=== PATIENT | female | born 1990 | race Two or more races ===

== ENCOUNTER 2018-08-20 17:13 | Emergency (ER) | payer SELFPAY ==
[~2018-08-20] VITALS: Ht 157.5 cm; Wt 55.6 kg
[2018-08-20 18:17] LABS: BASOPHILS # (AUTO) 0.04 x10^3/uL (0-0.1); BASOPHILS % (AUTO) 0 % (0-1); EOSINOPHILS # (AUTO) 0.05 x10^3/uL (0-0.4); EOSINOPHILS % (AUTO) 1 % (1-7); LYMPHOCYTES # (AUTO) 2.91 x10^3/uL (1-3.4); LYMPHOCYTES % (AUTO) 29 % (22-44); MD NO; MEAN CORPUSCULAR HGB CONC 34.8 g/dL (32.4-35.8); MEAN CORPUSCULAR VOLUME 91.8 fL (80-100); MEAN PLATELET VOLUME 8.3 fL (7.4-10.4); MONOCYTES # (AUTO) 0.79 x10^3/uL (0.2-0.8); MONOCYTES % (AUTO) 8 % (2-9); NEUTROPHILS # (AUTO) 6.15 x10^3/uL (1.8-6.8); NEUTROPHILS % (AUTO) 62 % (42-75); PLATELET COUNT 219 x10^3/uL (130-400); RED BLOOD COUNT 3.58 x10^6/uL (3.82-5.3); RED CELL DISTRIBUTION WIDTH 12.8 % (9.6-15.2)
[2018-08-20 18:32] LABS: ANION GAP 8 mmol/L (5-15); CALCIUM 9.3 mg/dL (8.5-10.1); CHLORIDE 106 mmol/L (98-107); CREATININE 0.61 mg/dL (0.55-1.02)
[2018-08-20 19:12] LABS: MICROSCOPIC NOT IND
[2018-08-20 19:14] LABS: CULTURE INDICATED? NO
[2018-08-20 19:50] VITALS: BP 120/72
== END 2018-08-20 21:48 | disposition home or self-care (01) ==
LOC: ED 19:59
DX: O20.0 Threatened abortion (principal)
CPT/HCPCS: 36415; 76801; 80048; 81003; 82040; 84702; 85025; 86901; 99285

== ENCOUNTER 2018-08-22 18:18 | Observation (INO) | payer SELFPAY ==
[~2018-08-22] VITALS: Ht 157.5 cm; Wt 55.6 kg
[2018-08-22 18:24] VITALS: BP 107/52
[2018-08-22] MEDS ORDERED: SILVER NITRATE STICK TP ONE (18:44)
[2018-08-22] MEDS ORDERED: BUPIVACAINE/PF-EPI 0.25% 1:200K ONE (18:44)
[2018-08-22 18:49] LABS: BASOPHILS # (AUTO) 0.04 x10^3/uL (0-0.1); BASOPHILS % (AUTO) 1 % (0-1); EOSINOPHILS # (AUTO) 0.06 x10^3/uL (0-0.4); EOSINOPHILS % (AUTO) 1 % (1-7); LYMPHOCYTES # (AUTO) 3.21 x10^3/uL (1-3.4); LYMPHOCYTES % (AUTO) 43 % (22-44); MD NO; MEAN CORPUSCULAR HEMOGLOBIN 32.1 pg (27.0-34.8); MEAN CORPUSCULAR HGB CONC 35.6 g/dL (32.4-35.8); MEAN CORPUSCULAR VOLUME 90.1 fL (80-100); MONOCYTES % (AUTO) 8 % (2-9); NEUTROPHILS # (AUTO) 3.62 x10^3/uL (1.8-6.8); NEUTROPHILS % (AUTO) 48 % (42-75); PLATELET COUNT 214 x10^3/uL (130-400); RED BLOOD COUNT 3.28 x10^6/uL (3.82-5.3); RED CELL DISTRIBUTION WIDTH 12.7 % (9.6-15.2)
[2018-08-22] MEDS ORDERED: FENTANYL PF 100 MCG/2ML ONE (18:51)
[2018-08-22] MEDS ORDERED: MIDAZOLAM 1 MG/ML, 2ML ONE (18:51)
[2018-08-22 18:52] LABS: INTERNATIONAL NORMALIZED RATIO 1.07 (0.93-1.1); PROTHROMBIN TIME 11.1 Seconds (9.6-11.5)
[2018-08-22 18:55] LABS: ALBUMIN 3.9 g/dL (3.4-5.0); ANION GAP 9 mmol/L (5-15); CALCIUM 8.4 mg/dL (8.5-10.1); CHLORIDE 107 mmol/L (98-107); CREATININE 0.63 mg/dL (0.55-1.02)
[2018-08-22] MEDS ORDERED: CEFOTETAN PMX 1GM/50ML 50 ML IVPB ONE (18:57)
[2018-08-22] MEDS ORDERED: KETOROLAC 30 MG/1 ML ONE (18:57)
[2018-08-22] MEDS ORDERED: PROPOFOL 10 MG/ML, 20ML ONE (18:57)
[2018-08-22] MEDS ORDERED: PHENYLEPHRINE 10 MG/ML ONE (18:57)
[2018-08-22] MEDS ORDERED: ONDANSETRON 2MG/ML, 2ML ONE (18:57)
[2018-08-22] MEDS ORDERED: SUGAMMADEX 200 MG/2 ML IVPush ONE (18:57)
[2018-08-22] MEDS ORDERED: DEXAMETHASONE 4 MG/ML, 1ML ONE (18:57)
[2018-08-22] MEDS ORDERED: ROCURONIUM 10 MG/ML,10ML ONE (18:57)
[2018-08-22] MEDS ORDERED: PROMETHAZINE 25 MG/ML, 1ML IV PRN (20:00)
[2018-08-22] MEDS ORDERED: OXYcodone 5 MG/5 ML ORAL.SOL UDC PO PRN (20:00)
[2018-08-22] MEDS ORDERED: HYDROmorphone 1 MG/ML, 1ML IV PRN (20:00)
[2018-08-22] MEDS ORDERED: ACETAMINOPHEN 325 MG TABLET PO PRN (20:00)
[2018-08-22] MEDS ORDERED: HALOPERIDOL 5 MG/ML IV PRN (20:00)
[2018-08-22] MEDS ORDERED: MEPERIDINE/PF 25MG/0.5ML IVPush PRN (20:00)
[2018-08-22] MEDS ORDERED: FENTANYL PF 100 MCG/2ML IV PRN (20:00)
[2018-08-22] MEDS ORDERED: MEPERIDINE/PF 50 MG/ML ONE (20:12)
[2018-08-22] MEDS ORDERED: OXYcodone 5 MG/5 ML ORAL.SOL UDC ONE (20:13)
[2018-08-22] MEDS ORDERED: ACETAMINOPHEN 650 MG/20.3 ML UDC ONE (20:19)
[2018-08-22] MEDS ORDERED: IBUP200T49 PO (22:54)
[2018-08-22] MEDS ORDERED: OXYC-302 PO (22:56)
== END 2018-08-22 23:56 | disposition home or self-care (01) ==
LOC: ED 18:20 → INTOOBSV 18:22 → EDIP 18:22 → ED 18:40 → 4NOR 21:00
PROVIDERS: ADMIT Student in an Organized Health Care Education/Training Program; ATTEND Student in an Organized Health Care Education/Training Program
DX: O00.101 Right tubal pregnancy without intrauterine pregnancy (principal); K66.1 Hemoperitoneum; N85.2 Hypertrophy of uterus; D64.9 Anemia, unspecified; R93.89 Abnormal findings on diagnostic imaging of other specified body structures
CPT/HCPCS: 36415; 59151; 80048; 82040; 84702; 85025; 85610; 86850; 86900; 88302; 99285; G0378; J1100; J1885; J2175; J2250; J2370; J2405; J2704; J3010; J3490